=== PATIENT | male | born 1975 ===

== ENCOUNTER 2017-10-11 05:26 | Emergency (ER) | payer OTHER ==
[2017-10-11 05:43] VITALS: O2SAT 99
[2017-10-11] MEDS ORDERED: Sodium Chloride 0.9% 1,000 ML IV STA (06:00)
[2017-10-11] MEDS ORDERED: Iohexol 240 (50 ml) PO ONE (06:00)
--- NOTE | 2017-10-11 06:16 | ED PDOC ---
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 Patient reports over 30 episodes of watery, yellow diarrhea as well as nausea and a subjective fever. He had a workup done at [facility] yesterday, including a CT scan which revealed inflammation around the appendix and colon, but patient states he was never given a formal diagnosis. According to patient, compared to yesterday, abdomen is more distended and he feels worse. Offers no other medical complaints. PMD: none provided Past Medical History Reviewed: Historical Data, Nursing Documentation, Vital Signs Vital Signs: Last Vital Signs Temp 98.8 F 10/11/17 05:35 Pulse 67 10/11/17 05:35 Resp 16 10/11/17 05:35 BP 134/84 10/11/17 05:35 Pulse Ox 99 10/11/17 06:34 - Medical History PMH: No Chronic Diseases - Surgical History Surgical History: No Surg Hx - Family History Family History: States: Unknown Family Hx - Allergies Allergies/Adverse Reactions: Allergies Allergy/AdvReac Type Severity Reaction Status Date / Time No Known Allergies Allergy Verified 10/11/17 05:43 Review of Systems ROS Statement: Except As Marked, All Systems Reviewed And Found Negative Constitutional: Positive for: Fever (subjective) Gastrointestinal: Positive for: Abdominal Pain, Diarrhea Physical Exam - Reviewed Nursing Documentation Reviewed: Yes Vital Signs Reviewed: Yes - Physical Exam Appears: Positive for: Non-toxic, No Acute Distress Head Exam: Positive for: ATRAUMATIC, NORMAL INSPECTION, NORMOCEPHALIC Skin: Positive for: Normal Color, Warm, Dry Eye Exam: Positive for: EOMI, Normal appearance, PERRL Neck: Positive for: Normal, Painless ROM, Supple Cardiovascular/Chest: Positive for: Regular Rate, Rhythm. Negative for: Murmur Respiratory: Positive for: Normal Breath Sounds. Negative for: Wheezing, Respiratory Distress Gastrointestinal/Abdominal: Positive for: Tenderness (in lower abdomen; worse on the right than the left), Distended (mild abdominal distention). Negative for: Normal Exam Extremity: Positive for: Normal ROM. Negative for: Deformity Neurologic/Psych: Positive for: Alert, Oriented (x 3). Negative for: Motor/ Sensory Deficits - ECG O2 Sat by Pulse Oximetry: 99 (RA) Pulse Ox Interpretation: Normal Medical Decision Making Medical Decision Makin:59 A & P: 42 year old with no medical history presenting with abdominal pain and diarrhea. --Patient's condition is worsening since yesterday at [facility]. --Will repeat imaging to look for possible development of appendicitis, colitis , diverticulitis or other intraabdominal pathologies. Orders: --blood type --Ct abd pelvis --CMP --Lipase --CBC --NS IV --Omnipaque 50 ml PO --Toradol 30 mg IVP --Blood cx --Urine cx --rapid HIV --UA 7:[address] Selby pending workup Scribe Attestation: Documented by Dipti Mccoy acting as a scribe for Refugio Herrera MD Provider Scribe Attestation: All medical record entries made by the Scribe were at my direction and personally dictated by me. I have reviewed the chart and agree that the record accurately reflects my personal performance of the history, physical exam, medical decision making, and the department course for this patient. I have also personally directed, reviewed, and agree with the discharge instructions and disposition. Disposition - Clinical Impression Clinical Impression: Abdominal pain - Patient ED Disposition Is Patient to be Admitted: Transfer of Care - Disposition Disposition: Transfer of Care Disposition Time: 07:00 Condition: STABLE Forms: [employer] (Swedish) Patient Signed Over To: Roger Selby III Handoff Comments: pending CT, labs, reevaluation and final disposition
[2017-10-11] MEDS ORDERED: Iohexol 240 (50 ml) ONE (06:32)
[2017-10-11 06:41] LABS: BASO % 0.4 % (0.0-2.0); EOS # 0.1 K/uL (0.0-0.7); EOS % 0.8 % (0.0-4.0); HEMOGLOBIN 15.8 g/dL (12.0-18.0); LYMPH # 1.2 K/uL (1.0-4.3); LYMPH % 14.4 % (20.0-40.0); MEAN CELL VOLUME 86.4 fl (80.0-94.0); MEAN CORPUSCULAR HEMOGLOBIN 29.3 pg (27.0-31.0); MEAN CORPUSCULAR HGB CONC 33.9 g/dL (33.0-37.0); MEAN PLATELET VOLUME 8.4 fl (7.2-11.7); MONO # 1.3 K/uL (0.0-0.8); MONO % 15.6 % (0.0-10.0); NEUT # 5.9 K/uL (1.8-7.0); NEUT % 68.8 % (50.0-75.0); NRBC % 0.1 % (0.0-0.0); RBC 5.39 Mil/uL (4.40-5.90); RED CELL DISTRIBUTION WIDTH 14.4 % (11.5-14.5); WHITE BLOOD COUNT 8.6 K/uL (4.8-10.8)
[2017-10-11 06:48] LABS: CALCIUM 8.9 mg/dL (8.4-10.2); GFR NON-AFRICAN AMERICAN > 60; LIPASE 73 U/L (23-300)
[2017-10-11 06:50] LABS: ALB/GLOB RATIO 1.3 (1.0-2.1); ALBUMIN 4.6 g/dL (3.5-5.0); ALT/SGPT 94 U/L (21-72); AST/SGOT 108 U/L (17-59); BLOOD UREA NITROGEN 10 mg/dl (9-20)
--- NOTE | 2017-10-11 07:02 | ED PDOC ---
- Laboratory Results Result Diagrams: 10/11/17 06:25 10/11/17 06:25 - ECG O2 Sat by Pulse Oximetry: 99 (RA) Medical Decision Making Medical Decision Makinam received endorsement pending CT abd pelv and re-eval, labs reviewed Accession No. 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 TECHNIQUE: Without contrast.. Contrast dose: 0 Radiation dose: Total exam DLP = 712.70 mGy-cm. This CT exam was performed using one or more of the following dose reduction techniques: Automated exposure control, adjustment of the mA and/or kV according to patient size, and/or use of iterative reconstruction technique. FINDINGS: LOWER THORAX: Unremarkable. LIVER: Mild hepatomegaly. The liver measures approximately 20.3 cm craniocaudal. Smooth contour. No mass. Diffusely diminished attenuation consistent with fatty infiltration. No biliary ductal dilatation. GALLBLADDER AND BILE DUCTS: Unremarkable. PANCREAS: Unremarkable. No gross lesion or ductal dilatation. SPLEEN: Unremarkable. ADRENALS: Unremarkable. No mass. KIDNEYS AND URETERS: Unremarkable. No hydronephrosis. No solid mass. VASCULATURE: Unremarkable. No aortic aneurysm. BOWEL: Mild mural thickening of the ascending and transverse colon which may reflect a mild nonspecific colitis. This may be somewhat artifactual due to lack of adequate distention. No bowel obstruction. No other abnormal bowel loops are appreciated. APPENDIX: Unremarkable. Normal appendix. PERITONEUM: Unremarkable. No free fluid. No free air. LYMPH NODES: Unremarkable. No enlarged lymph nodes. BLADDER: Unremarkable. REPRODUCTIVE: Normal prostate BONES: No acute fracture. OTHER FINDINGS: None. IMPRESSION: No evidence of acute appendicitis. Mild nonspecific colitis involving the ascending and transverse colon. No bowel obstruction. Mild hepatomegaly with fatty infiltration of the liver. No additional abnormality. 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 Have LFTs rechecked in 10 days. Rx cipro and flagyl given mild colitis and 5 days diarrhea. Pt cannot move BM here to gain stool sample. Abd re-eval 10am nontender, well appearing, feels hungry and explained diet modifications and oral hydration Disposition - Clinical Impression Clinical Impression: Abdominal pain, Colitis, Diarrhea - POA Present On Arrival: None - Disposition Referrals: [facility] [place] [Outside] Disposition: Routine/Home Disposition Time: 10:39 Condition: STABLE Additional Instructions: Followup with GI doctor and PMD for repeat liver testing in 10-15 days. Return to ER for any worse or new symptoms. Take medications as directed. Avoid dairy, fried, or spicy foods for 10 days. Prescriptions: Ciprofloxacin [Cipro] 500 mg PO BID #14 tab Ibuprofen [Motrin Tab] 600 mg PO Q6 PRN #15 tab PRN Reason: Pain, Moderate (4-7) Loperamide [Loperamide HCl] 2 mg PO QID PRN #15 cap PRN Reason: Diarrhea metroNIDAZOLE [Flagyl] 500 mg PO TID #21 tab Instructions: Diarrhea and Traveler's Diarrhea, Adult (DC), Acute Abdomen ( Belly Pain), Adult (DC) Forms: [employer] (Setswana) Print Language: PASHTO
[2017-10-11 08:07] LABS: URINE BILIRUBIN NEGATIVE (NEGATIVE); URINE BLOOD SMALL (NEGATIVE); URINE CLARITY CLEAR (Clear); URINE COLOR YELLOW (YELLOW); URINE GLUCOSE (UA) NEG (Normal); URINE HYALINE CAST 0-2 /hpf (0-2); URINE LEUKOCYTE ESTERASE NEG Leu/uL (Negative); URINE PROTEIN NEGATIVE (NEGATIVE); URINE UROBILINOGEN 0.2-1.0 mg/dL (0.2-1.0)
[2017-10-11] MEDS ORDERED: Sodium Chloride 0.9% 50 ML IV ONE (08:36)
[2017-10-11] MEDS ORDERED: Iohexol 300 100 ML IJ ONE (08:36)
--- NOTE | 2017-10-11 09:56 | CT ---
Date of service: 10/11/2017 PROCEDURE: CT Abdomen and Pelvis without intravenous contrast HISTORY: abd pain, diarrhea, distension COMPARISON: None. TECHNIQUE: Without contrast.. Contrast dose: 0 Radiation dose: Total exam DLP = 712.70 mGy-cm. This CT exam was performed using one or more of the following dose reduction techniques: Automated exposure control, adjustment of the mA and/or kV according to patient size, and/or use of iterative reconstruction technique. FINDINGS: LOWER THORAX: Unremarkable. LIVER: Mild hepatomegaly. The liver measures approximately 20.3 cm craniocaudal. Smooth contour. No mass. Diffusely diminished attenuation consistent with fatty infiltration. No biliary ductal dilatation. GALLBLADDER AND BILE DUCTS: Unremarkable. PANCREAS: Unremarkable. No gross lesion or ductal dilatation. SPLEEN: Unremarkable. ADRENALS: Unremarkable. No mass. KIDNEYS AND URETERS: Unremarkable. No hydronephrosis. No solid mass. VASCULATURE: Unremarkable. No aortic aneurysm. BOWEL: Mild mural thickening of the ascending and transverse colon which may reflect a mild nonspecific colitis. This may be somewhat artifactual due to lack of adequate distention. No bowel obstruction. No other abnormal bowel loops are appreciated. APPENDIX: Unremarkable. Normal appendix. PERITONEUM: Unremarkable. No free fluid. No free air. LYMPH NODES: Unremarkable. No enlarged lymph nodes. BLADDER: Unremarkable. REPRODUCTIVE: Normal prostate BONES: No acute fracture. OTHER FINDINGS: None. IMPRESSION: No evidence of acute appendicitis. Mild nonspecific colitis involving the ascending and transverse colon. No bowel obstruction. Mild hepatomegaly with fatty infiltration of the liver. No additional abnormality.
[2017-10-11 10:46] VITALS: BP 138/70; PULSE 69; RESP 18; TEMP 98.5
== END 2017-10-11 11:16 | disposition home or self-care (01) ==
LOC: H.ER 05:26
DX: K52.9 Noninfective gastroenteritis and colitis, unspecified (principal); R19.7 Diarrhea, unspecified
CPT/HCPCS: 74176; 80053; 81003; 83690; 85025; 86850; 86900; 87040; 87086; 87390; 96374; 99284; J1885; J7030; Q9966; Q9967